=== PATIENT | female | born 1960 | race Caucasian/White ===

== ENCOUNTER 2018-02-09 08:32 | Inpatient (IN) | payer OTHER ==
[2018-02-09 08:45] VITALS: BMI 38.7
[2018-02-09] MEDS ORDERED: KETOROLAC TROMETHAMINE 30 MG/1 ML VIAL IVPUSH ONE (09:31)
[2018-02-09] MEDS ORDERED: SODIUM CHLORIDE 1,000 ML IV STA (09:31)
--- NOTE | 2018-02-09 09:31 | PDOC ---
History of Present Illness - General Chief Complaint: Pain, Acute Stated Complaint: WEAKNESS,LOWER BACK PAIN Time Seen by Provider: 02/09/18 09:09 History Source: Patient Exam Limitations: No Limitations - History of Present Illness Initial Comments: 02/09/18 10:16 Tao 57 year old female with a history of hypothyroidism, depression, breast cancer s/p lumpectomy, gastric bypass surgery, uterine prolapse, abdominal wall hernia s/p mesh Presenting to the ED with 2 days of progressive left flank pain, sharp and nonradiating, no alleviating or exacerbating factors , a/w dizziness/feeling faint and nausea. On , initially had lower back strain/pain thought to be 2/2 lifting heavy ham she had to cook. a/w urinary incontinence/frequency (x 3 months), but no hematuria. No f/c, cp, sob, vomiting, diarrhea or constipation. No h/o kidney stones. GENERAL/CONSTITUTIONAL: No fever or chills. +weakness and malaise CARDIOVASCULAR: No chest pain or palpitations, syncope or edema. RESPIRATORY: No SOB, cough GASTROINTESTINAL +abdominal pain and nausea. No vomiting. No diarrhea or constipation. No bloody stools. GENITOURINARY: No hematuria, +dysuria, frequency, urgency MUSCULOSKELETAL: No joint or muscle swelling or pain. +back pain SKIN: No rash or changes in skin color or lesions. NEUROLOGIC: +dizziness, near syncopal. No headache, loss of consciousness, or change in strength/sensation. No gait instability. HEMATOLOGIC/LYMPHATIC: No anemia, easy bruising/bleeding, or history of blood clots. ALLERGIC/IMMUNOLOGIC: No allergies All other systems reviewed and negative, or as documented in HPI. General: Well appearing, awake and alert, NAD. HEENT: NCAT, PERRL, EOMI, clear conjunctiva, anicteric, moist mucus membranes, clear oropharynx, no oral lesions.. Neck: neck supple, FROM Resp: CTAB, normal and even respirations, no respiratory distress CVS: RRR, no murmurs, 2+ peripheral pulses throughout, no peripheral edema Abdomen: soft, obese abdomen, nontender abdomen, no rebound or guarding.. +left CVAT Back: +left CVAT. normal inspection and ROM MSK: no edema, ROCHE x4, ROM intact. No clubbing or cyanosis. normal bulk and tone. Extremities: no calf tenderness Neuro: alert Skin: warm and well perfused, cap refill <2 sec, normal color Past History - Past Medical History Allergies/Adverse Reactions: Allergies Allergy/AdvReac Type Severity Reaction Status Date / Time No Known Allergies Allergy Verified 02/09/18 08:42 Home Medications: Ambulatory Orders Levothyroxine [Synthroid] 100 mcg PO DAILY 10/26/11 Citalopram Hydrobromide [Celexa -] 20 mg PO DAILY 11/28/12 Anemia: No Asthma: Yes Cancer: Yes (Right Breast) Cardiac Disorders: No CVA: No COPD: No CHF: No Dementia: No Diabetes: No GI Disorders: No Disorders: No HTN: No Hypercholesterolemia: No Liver Disease: No Seizures: No Thyroid Disease: Yes - Surgical History Abdominal Surgery: Yes (Gastric Bypass 1998) Appendectomy: No Cardiac Surgery: No Cholecystectomy: Yes Lung Surgery: No Neurologic Surgery: No Orthopedic Surgery: No - Suicide/Smoking/Psychosocial Hx Smoking Status: Yes Smoking History: Unknown if ever smoked Have you smoked in the past 12 months: Yes Number of Cigarettes Smoked Daily: 20 'Breaking Loose' booklet given: 10/26/11 Hx Alcohol Use: No Drug/Substance Use Hx: Yes Substance Use Type: Alcohol Hx Substance Use Treatment: No *Physical Exam - Vital Signs Last Vital Signs Temp Pulse Resp BP Pulse Ox 98.4 F 63 16 111/84 94 L 02/09/18 08:42 02/09/18 09:06 02/09/18 09:06 02/09/18 09:06 02/09/18 09:06 Moderate Sedation - Procedure Monitoring Vital Signs: Procedure Monitoring Vital Signs Temperature 98.4 F 02/09/18 08:42 Pulse Rate 63 02/09/18 09:06 Respiratory Rate 16 02/09/18 09:06 Blood Pressure 111/84 02/09/18 09:06 O2 Sat by Pulse Oximetry (%) 94 L 02/09/18 09:06 Procedures - Bedside Ultrasound Other: RENAL Remarks: 02/09/18 10:24 POCUS renal exam performed, indication includes abdominal/flank pain. views obtained: bilateral kidneys in short and long axis, bladder. findings: +severe left hydronephrosis. Impression: +left hydronephrosis. ED Treatment Course - LABORATORY CBC & Chemistry Diagram: 02/09/18 10:05 02/09/18 10:05 Medical Decision Making - Medical Decision Making 02/09/18 11:39 See HPI for details DDx abdominal pain: Renal colic, ureterolithiasis, biliary colic, metabolic/ electrolyte derangements. GERD, PUD, esophageal spasm, pancreatitis, hepatitis, constipation, colitis,UTI, pyelonephritis, ileus, SBO, medication side effect, hernia, appendicitis, diverticulitis, pelvic/abdominal mass causing obstruction of ureteral system. Vital signs reviewed, initially hypotensive, ?vagal episode 2/2 pain, on recheck normotensive, mentating and normalized VS no fever. Prior notes reviewed, including admissions, discharges and consultations. laboratory results and imaging reviewed, basic labs and lytes wnl, normal LFTs/ lipase. UA_with +leuk esterase and copious WBCs, f/u urine culture. Treat with IV ceftriaxone. ED course: toradol for analgesia, IVF hydration. Clinically improved. POCUS renal exam performed, indication includes abdominal/flank pain. views obtained: bilateral kidneys in short and long axis, bladder. findings: +severe left hydronephrosis. Impression: +left hydronephrosis. CT spiro_severe left hydro noted. perinephric stranding, but no stones or mass noted. Urology cs Dr Cooper electronic health records specialist Dispo: admit to medicine for continued management. Impression and plan d/w patient, agreeable. hospitalist team notified. 02/09/18 13:14 *DC/Admit/Observation/Transfer Diagnosis at time of Disposition: UTI (urinary tract infection), Hydronephrosis due to obstruction of ureter - Discharge Dispostion Condition at time of disposition: Fair Decision to Admit order: Yes Decision to Admit order Date/Time: 02/09/18 11:37 Decision to Admit Order Category Date Time Status Decision to Admit to Hospital Routine Admission 02/09/18 11:37 Ordered - Referrals - Patient Instructions - Post Discharge Activity
[2018-02-09] MEDS ORDERED: KETOROLAC TROMETHAMINE 15 MG/ML VIAL ONE (10:00)
[2018-02-09 10:27] LABS: BASO % 0.4 % (0-2.0); EOS % 0.1 % (0-4.5); HEMATOCRIT 34.7 % (32.4-45.2); HEMOGLOBIN 11.8 GM/dL (10.7-15.3); MCH 27.7 pg (25.7-33.7); MEAN CELL VOLUME 81.4 fl (80-96); MONO % 7.3 % (3.8-10.2); NEUT % 87.2 % (42.8-82.8); PLATELET COUNT 243 K/MM3 (134-434); RBC 4.26 M/mm3 (3.60-5.2); WHITE BLOOD COUNT 8.6 K/mm3 (4.0-10.0)
[2018-02-09 10:56] LABS: URINE APPEARANCE CLOUDY; URINE BILIRUBIN NEGATIVE (<2.0 mg/dL); URINE COLOR DKYELLOW; URINE GLUCOSE (UA) NEGATIVE (NEGATIVE); URINE KETONE 1+ (NEGATIVE); URINE LEUK ESTERASE 3+ (NEGATIVE); URINE NITRITE NEGATIVE (NEGATIVE); URINE PROTEIN NEGATIVE (NEGATIVE); URINE UROBILINOGEN NEGATIVE mg/dL (0.2-1.0)
[2018-02-09 11:02] LABS: ALBUMIN 3.7 g/dl (3.4-5.0); ALK PHOS 87 U/L (45-117); ANION GAP 8 MMOL/L (8-16); BILIRUBIN,TOTAL 2.3 mg/dL (0.2-1); BLOOD UREA NITROGEN 25 mg/dL (7-18); CALCIUM 8.5 mg/dL (8.5-10.1); CHLORIDE 100 mmol/L (98-107); CO2 25 mmol/L (21-32); CREATININE 0.9 mg/dL (0.55-1.3); GLUCOSE,RANDOM 127 mg/dL (74-106); LIPASE 95 U/L (73-393); POTASSIUM 4.1 mmol/L (3.5-5.1); SGOT/AST 17 U/L (15-37); SGPT/ALT 19 U/L (13-61); SODIUM 132 mmol/L (136-145); TOT PROT 6.6 g/dl (6.4-8.2)
[2018-02-09 11:18] LABS: EPI CELLS FEW /HPF (FEW); URINE BACTERIA RARE /hpf (NONE SEEN); URINE HYALINE CAST 7 /lpf; URINE MUCUS RARE
[2018-02-09] MEDS ORDERED: CEFTRIAXONE 1,000 MG in DEXTROSE 5%-WATER - 50 ML IVPB ONE (11:26)
--- NOTE | 2018-02-09 12:11 | EKG ---
Test Reason : Blood Pressure : / mmHG Vent. Rate : 063 BPM Atrial Rate : 063 BPM P-R Int : 164 ms QRS Dur : 086 ms QT Int : 406 ms P-R-T Axes : 057 -56 -16 degrees QTc Int : 415 ms NORMAL SINUS RHYTHM LEFT AXIS DEVIATION T WAVE ABNORMALITY, CONSIDER ANTERIOR ISCHEMIA ABNORMAL ECG WHEN COMPARED WITH ECG OF 28-NOV-2012 18:36, VENT. RATE HAS DECREASED BY 40 BPM NONSPECIFIC T WAVE ABNORMALITY NOW EVIDENT IN INFERIOR LEADS T WAVE INVERSION NOW EVIDENT IN ANTERIOR LEADS QT HAS SHORTENED Confirmed by LOLLY MCCORD MD ([id number]) on 02/09/2018 12:11:08 PM Referred By: Confirmed By:LOLLY CMCORD MD
[2018-02-09] MEDS ORDERED: KETOROLAC TROMETHAMINE 10 MG TABLET PO PRN (13:34)
[2018-02-09] MEDS ORDERED: ACETAMINOPHEN 1000 MG/100 ML VIAL (NON FORMULARY) IVPB ONE (13:43)
--- NOTE | 2018-02-09 13:45 | HP ---
CHIEF COMPLAINT: flank pain x 2 days PCP: Dr. Loja HISTORY OF PRESENT ILLNESS: 57 y/o F with PMH R breast CA (dx 2009; currently in remission. s/p radiation, tamoxifen finished 2011), depression, ?alcohol abuse, hypothyroidism, gastric bypass surgery (1998), uterine prolapse (2016), abdominal wall hernia repair w/ mesh (Jaspreet, 2016), freq UTIs, who presents to the ED c/o flank pain over the past two days. As per pt, yesterday she suddenly developed a sharp pain in her L flank. Pain was 10/10, constant and severe without radiation, however a/w nausea (without emesis) and "feeling as if she would pass out." She also felt subjective fever and chills. Pain was alleviated with two advils. Today, pt was having a meal with her friend when she developed the same recurrent, constant L flank pain leading her to come to the ED for further evaluation. During this time, pt denies urinary frequency, dysuria, hematuria, chest pain or pressure, or changes in bowel function. Of note, pt was diagnosed with uterine prolapse one year ago by her stair builder. She was told that she had increased pressure on her bladder and needed to have a hysterectomy or "other procedure" to have it fixed. Pt was currently in the process of scheduling this procedure. Recently, pt also developed severe constipation with hard stools a month ago after she tried a keto diet. Ever since, she has had developed worsening, frequent UTI's (most recently tx with Levaquin). 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 Smoking: +active smoker. 1/2 ppd "all her life" . has tried chantix in past without success Alcohol: denies; however chart w/ past hx of alcohol abuse Drugs: denies Family History: father- CHF, cancer- unable to specify d/t increased pain Allergies No Known Allergies Allergy (Verified 02/09/18 08:42) HOME MEDICATIONS: Home Medications Medication Instructions Recorded Levothyroxine [Synthroid] 112 mcg PO DAILY 10/26/11 Citalopram Hydrobromide [Celexa -] 30 mg PO DAILY 11/28/12 Zolpidem Tartrate [Ambien] 10 mg PO HS 02/09/18 Verified with patient at bedside. [facility] REVIEW OF SYSTEMS CONSTITUTIONAL: +fever, chills Absent: diaphoresis, generalized weakness, malaise, loss of appetite, weight change HEENT: Absent: rhinorrhea, nasal congestion, throat pain, throat swelling, difficulty swallowing, mouth swelling, ear pain, eye pain, visual changes CARDIOVASCULAR: Absent: chest pain, syncope, palpitations, irregular heart rate, lightheadedness , peripheral edema RESPIRATORY: Absent: cough, shortness of breath, dyspnea with exertion, orthopnea, wheezing, stridor, hemoptysis GASTROINTESTINAL: +nausea Absent: abdominal pain, abdominal distension, vomiting, diarrhea, constipation, melena, hematochezia GENITOURINARY: +flank pain Absent: dysuria, frequency, urgency, hesitancy, hematuria, genital pain MUSCULOSKELETAL: Absent: myalgia, arthralgia, joint swelling, back pain, neck pain SKIN: Absent: rash, itching, pallor HEMATOLOGIC/IMMUNOLOGIC: Absent: easy bleeding, easy bruising, lymphadenopathy, frequent infections ENDOCRINE: Absent: unexplained weight gain, unexplained weight loss, heat intolerance, cold intolerance NEUROLOGIC: Absent: headache, focal weakness or paresthesias, dizziness, unsteady gait, seizure, mental status changes, bladder or bowel incontinence PSYCHIATRIC: Absent: anxiety, depression, suicidal or homicidal ideation, hallucinations. PHYSICAL EXAMINATION Vital Signs - 24 hr 02/09/18 02/09/18 08:42 09:06 Temperature 98.4 F Pulse Rate 69 Pulse Rate [ 63 Apical] Respiratory 28 H 16 Rate Blood Pressure 85/43 L Blood Pressure 111/84 [Right] O2 Sat by Pulse 99 94 L Oximetry (%) GENERAL: pleasant. resting flat; in moderate distress HEAD: Normal with no signs of trauma. EYES: Pupils equal, round and reactive to light, extraocular movements intact, sclera anicteric, conjunctiva clear. EARS, NOSE, THROAT: Ears normal, nares patent, oropharynx clear without exudates. Dry mucous membranes NECK: Normal range of motion, supple LUNGS: +shallow breathing; in pain. CTA. without rhonchi, wheezes or crackles HEART: Regular rate and rhythm, normal S1 and S2 without murmur, rub or gallop. ABDOMEN: Soft, nontender, not distended, firm. + vertical surg scar. normoactive bowel sounds, no guarding. +L flank pain, L CVA tenderness LOWER EXTREMITIES: 2+ pt pulses, warm, well-perfused. No calf tenderness. No peripheral edema. NEUROLOGICAL: Cranial nerves II-XII intact. Normal speech. 5/5 motor strength RLE, RUE, LUE. unable to lift LLE d/t flank pain PSYCHIATRIC: Cooperative. Good eye contact. Laboratory Results 02/09/18 02/09/18 02/09/18 10:05 10:05 10:47 WBC 8.6 Hgb 11.8 Hct 34.7 Plt Count 243 Sodium 132 L Potassium 4.1 Chloride 100 Carbon Dioxide 25 BUN 25 H Creatinine 0.9 Total Bilirubin 2.3 H AST 17 ALT 19 Urine Ketones 1+ H Urine Blood 1+ H Ur Leukocyte Esterase 3+ H Urine WBC (Auto) [address]: L pelvocaliectasis with mild dilation of proximal ureter. No radiopaque stones. Findings new compared to past study. s/p bariatric surgery, cholecystectomy. mild dilation of extra hepatic bile ducts, usual postcholecystectomy. CBD 15mm as seen previously EKG: L axis deviation (present prior), anterior ischemia new from 2014 ekg. ASSESSMENT/PLAN: 57 y/o F with PMH R breast CA (dx 2009; currently in remission. s/p radiation, tamoxifen finished 2011), depression, ?alcohol abuse, hypothyroidism, gastric bypass surgery (1998), uterine prolapse (2016), abdominal wall hernia repair w/ mesh (Jaspreet, 2016), freq UTIs, who presents to the ED c/o L flank pain over the past two days. #Acute L flank pain likely 2/2 pyelonephritis -currently hemodynamically stable. L hydro likely worsened by recent episodes of severe constipation causing increased intraabdom pressure on bladder, may have caused urine to reflux. also likely worsened by may also have passed stone -case d/w uro; will insert persaud to allow for bladder decompression. will instruct on when it can be d/c -s/p rocephin. will cont rocephin 1g qd, will likely need 7 days total abx -f/u urine cx, blood cx. blood was sent s/p rocephin. possible pt bacteremic as had chills when sx began, ?rigors -pain control toradol 10q6h PO PRN; tolerating PO -tylenol 500 q6h PRN for fever -IV NS #?new anterior ischemia -f/u EKG tomorrow, may be chronic -may need stress test as outpt, reeval tomorrow -without chest pain -f/u trops #elevated t bili -as per rads, spiral CT report to be addended: dilation extra hepatic bile ducts usual post-jac -cont to follow LFTs (WNL now), currently asymptomatic #depression -c/w celexa 30mg qd #hypothyroidism -c/w synthroid 112 mcg qd #F/E/N IV NS 100 cc/hr continue to follow lytes regular diet #PPX DVT: hep 5k sq tid #Dispo monitoring on med-surg. continue iv abx, assessment by uro Visit type - Emergency Visit Emergency Visit: Yes ED Registration Date: 02/09/18 Care time: The patient presented to the Emergency Department on the above date and was hospitalized for further evaluation of their emergent condition. - New Patient This patient is new to me today: Yes Date on this admission: 02/09/18 - Critical Care Critical Care patient: No
--- NOTE | 2018-02-09 13:46 | PN ---
Teaching Attending Note Name of Resident: Yeimi Bah ATTENDING PHYSICIAN STATEMENT I saw and evaluated the patient. I reviewed the resident's note and discussed the case with the resident. I agree with the resident's findings and plan as documented. SUBJECTIVE: CC: L flank pain, and chills HPI: 57 y/o lady with h/o breast ca s/p lumpectomy, chemo and radiation, recurrent UTis, gastric bypass, uterine prolapse, depression and other medical problems who presented with L flank pain and chills. L flank pain started yesterday x 45 min , then resolved but recurred and has fiordaliza constant. she reports chills. reports dysuria, no hematuria. had dysuria 3 months ago, and was given a course of levaquin for UTI as out pt . since then , no urinary complaints. she is in ER now, still has L flank pain, has chills, feels very cold. received ceftriaxone in ER. CT was done and showed L hydro with stranding, but no obstruction OBJECTIVE: crying , in mild distress. awake, alert , cooperative MMM, no facial droop, EOMI, round equal pupils, reactive to light. no JVD. CV: RRR, no MRG Lungs: CTAB abd: soft, TTP in LUQ, LLQ, and suprapubic area. nL BS . L CVA tenderness Ext : no edema or erythema. Labs and UA reviewed. ASSESSMENT AND PLAN: Pleasant 57 y/o lady with h/o breast ca s/p lumpectomy, chemo and radiation, recurrent UTis, gastric bypass, uterine prolapse, depression and other medical problems who presented with L flank pain and chills. She was found to have acute L pyelonephritis. 1- Acute L pyelonephritis: with hydro, but no evidence of obstruction . ? passed a stone . - blood was not sent in ER. will send one stat - cont ceftriaxone - follow urine cx ( snet before abx ) - no obstruction on CT but will consult uro for hydronephrosis : uro notified by resident - persaud - IVF - toradol for pain - Tylenol for fever 2- Elevated bili : with NL LFTS. will fractionate the bili , suspect Gilbert's . Monitor . CT reviewed. dilation of extrahepatic bile ducts, s/p CCY. will d/w radiology. no RUQ tenderness 3- EKG changes: TWI in lateral leads. new from 2015. L axis ( old ) . no CP. changes are probably not new. - check trop x 2 . - might need out pt work up 4- h/o depression : cont SSRI 5- h/o hypothyroidism: cont synthroid 6- DVT PX : heparin sq case was d/w patient
[2018-02-09] MEDS: SODIUM CHLORIDE 1,000 ML IV SCH (13:49)
[2018-02-09] MEDS ORDERED: ACETAMINOPHEN INJECTION 100 ML IVPB ONE (13:51)
[2018-02-09] MEDS: HEPARIN NA (PORCINE) 5,000 UNITS/ML 1ML VIAL SQ SCH ×2 (14:56→17:01)
[2018-02-09] MEDS: LEVOTHYROXINE NA 112 MCG TABLET (FP) PO SCH (14:57)
[2018-02-09] MEDS: ACETAMINOPHEN 500 MG TABLET (FP) PO PRN (20:19)
[2018-02-09] MEDS ORDERED: PT OWN MED DRAWER 7, Y5N ONE (21:32)
[2018-02-09] MEDS: ZOLPIDEM TARTRATE 5 MG TABLET PO PRN (21:35)
[2018-02-09] MEDS: CITALOPRAM HYDROBROMIDE 10 MG TABLET (FP) PO SCH (22:24)
[2018-02-10] MEDS: HEPARIN NA (PORCINE) 5,000 UNITS/ML 1ML VIAL SQ SCH ×3 (01:58→17:08)
[2018-02-10] MEDS: LEVOTHYROXINE NA 112 MCG TABLET (FP) PO SCH (06:15)
[2018-02-10 08:26] LABS: BASO % 0.6 % (0-2.0); EOS % 0.5 % (0-4.5); HEMATOCRIT 32.1 % (32.4-45.2); HEMOGLOBIN 10.4 GM/dL (10.7-15.3); LYMPH % 8.1 % (8-40); MCH 26.8 pg (25.7-33.7); MCHC 32.3 g/dl (32.0-36.0); MEAN PLT VOLUME 8.4 fl (7.5-11.1); MONO % 7.9 % (3.8-10.2); NEUT % 82.9 % (42.8-82.8); PLATELET COUNT 180 K/MM3 (134-434); RBC 3.87 M/mm3 (3.60-5.2); RDW 14.3 % (11.6-15.6); WHITE BLOOD COUNT 6.9 K/mm3 (4.0-10.0)
--- NOTE | 2018-02-10 08:26 | CON.GU ---
Consult Consult Specialty:: Referred by:: maty Reason for Consultation:: hydronephrosis - History of Present Illness Chief Complaint: hydronephrosis History of Present Illness: 57 year old female with grade 4 uterine prolapse. She is admitted with presumed pyelonephritis. She was found to have severe left hydronephrosis down to the bladder without stone. She reports that her prolapse occurred about [address] scan in 2014 before the prolapse showed no obstruction - History Source History Provided By: Patient Limitations to Obtaining History: No Limitations - Past Medical History Reproductive: Yes: Other (prolapse) ...: No - Alcohol/Substance Use Hx Alcohol Use: No - Smoking History Smoking history: Current some day smoker Have you smoked in the past 12 months: Yes Aproximately how many cigarettes per day: 7 Home Medications - Allergies Allergies/Adverse Reactions: Allergies Allergy/AdvReac Type Severity Reaction Status Date / Time No Known Allergies Allergy Verified 02/09/18 08:42 - Home Medications Home Medications: Ambulatory Orders Levothyroxine [Synthroid] 112 mcg PO DAILY 10/26/11 Citalopram Hydrobromide [Celexa -] 30 mg PO DAILY 11/28/12 Zolpidem Tartrate [Ambien] 10 mg PO HS PRN 02/09/18 Review of Systems - Review of Systems Genitourinary: reports: Frequency, Incontinence Physical Exam- Vital Signs: Vital Signs Temperature 98.1 F 02/10/18 05:00 Pulse Rate 78 02/10/18 05:00 Respiratory Rate 20 02/10/18 05:00 Blood Pressure 109/60 02/10/18 05:00 O2 Sat by Pulse Oximetry (%) 98 02/09/18 21:00 Constitutional: Yes: Well Nourished, No Distress, Calm Gastrointestinal: Yes: WNL, Normal Bowel Sounds Renal/: No: Bladder Distention, CVA Tenderness - Left, CVA Tenderness - Right , Persaud Present Pelvis: Yes: Other (grade 4 uterine prolapse) Imaging - Results Cat Scan: Report Reviewed Problem List - Problems (1) Uterine prolapse Code(s): N81.4 - UTEROVAGINAL PROLAPSE, UNSPECIFIED (2) Hydronephrosis Assessment/Plan: prolapse is contributing to hydroureteronephrosis.. I placed a persaud catheter. Code(s): N13.30 - UNSPECIFIED HYDRONEPHROSIS
[2018-02-10 08:59] LABS: ALBUMIN 2.8 g/dl (3.4-5.0); ALK PHOS 64 U/L (45-117); ANION GAP 8 MMOL/L (8-16); BILIRUBIN,TOTAL 1.4 mg/dL (0.2-1); BLOOD UREA NITROGEN 20 mg/dL (7-18); CALCIUM 7.8 mg/dL (8.5-10.1); CHLORIDE 107 mmol/L (98-107); CO2 24 mmol/L (21-32); CREATININE 0.9 mg/dL (0.55-1.3); GLUCOSE,RANDOM 91 mg/dL (74-106); MAGNESIUM 1.8 mg/dL (1.8-2.4); PHOSPHOROUS 2.4 mg/dL (2.5-4.9); POTASSIUM 4.1 mmol/L (3.5-5.1); SGOT/AST 16 U/L (15-37); SGPT/ALT 13 U/L (13-61); SODIUM 138 mmol/L (136-145); TOT PROT 5.5 g/dl (6.4-8.2)
[2018-02-10 09:00] LABS: INR 1.33 (0.83-1.09); PROTHROMBIN TIME (PATIENT) 15.7 SEC (9.7-13.0)
[2018-02-10] MEDS: CITALOPRAM HYDROBROMIDE 10 MG TABLET (FP) PO SCH (09:36)
[2018-02-10] MEDS: ACETAMINOPHEN 500 MG TABLET (FP) PO PRN ×2 (09:36→17:07)
[2018-02-10] MEDS ORDERED: DEXTROSE 5%-WATER - 50 ML IVPB ONE (11:12)
[2018-02-10] MEDS ORDERED: cefTRIAXone SODIUM 1 GM VIAL ONE (11:12)
[2018-02-10] MEDS ORDERED: CEFTRIAXONE 1 G/50 ML PREMIX 50 ML IVPB SCH (12:00)
[2018-02-10] MEDS ORDERED: CEFTRIAXONE 1 GM in DEXTROSE 5%-WATER - 50 ML IVPB SCH (12:00)
[2018-02-10] MEDS ORDERED: NAPH,MB-DB/K PH,MBDB POWDER PACKET PO ONE (12:04)
[2018-02-10] MEDS ORDERED: MAGNESIUM OXIDE 400 MG TABLET (FP) PO ONE (12:05)
[2018-02-10] MEDS: SODIUM CHLORIDE 1,000 ML IV SCH ×2 (13:45→23:44)
--- NOTE | 2018-02-10 17:48 | PN ---
Teaching Attending Note Name of Resident: Cait Esposito ATTENDING PHYSICIAN STATEMENT I saw and evaluated the patient. I reviewed the resident's note and discussed the case with the resident. I agree with the resident's findings and plan as documented. SUBJECTIVE: seen in am. felt better than before. denied any pain or fever over night. OBJECTIVE: NAD. happy and smiling MMM CV: RRR, no MRG Lungs: CTAB Abd: soft, NT, ND , NL BS Ext : no edema or erythema. ASSESSMENT AND PLAN: Pleasant 57 y/o lady with h/o breast ca s/p lumpectomy, chemo and radiation, recurrent UTis, gastric bypass, uterine prolapse, depression and other medical problems who presented with L flank pain and chills. She was found to have acute L pyelonephritis. 1- Acute L pyelonephritis: with hydro, but no evidence of obstruction. ? passed a stone vs from uterine prolapse . - cont ceftriaxone. fever is OK within 48 hr of starting abx - urine cx noted for lactose fermenting - follow blood cx - cont persaud - repeat US tomorrow 2- EKG changes: TWI in lateral leads. new from 2015. L axis ( old ) . no CP. changes are probably not new. - trop neg - might need out pt work up 3- h/o depression : cont SSRI 4- h/o hypothyroidism: cont synthroid 5- DVT PX : heparin sq
--- NOTE | 2018-02-10 18:02 | PN ---
Physical Exam: SUBJECTIVE: Patient seen and examined at bedside this morning. No acute events overnight. Patient reported her flank pain has resolved, and she has not asked for any pain medications. She reports of headache last night, which was relieved after taking Tylenol. Otherwise, patient denies fever, chills, nausea, vomiting, chest pain, SOB, palpitation, abdominal pain, diarrhea. Leary output 1200ml overnight. OBJECTIVE: Vital Signs Period Temp Pulse Resp BP Sys/Mcallister Pulse Ox Last 24 Hr 98.1 F-101.3 F 69-86 18-20 102-118/56-63 98 GENERAL: The patient is awake, alert, and fully oriented, in no acute distress. HEAD: Normal with no signs of trauma. EYES: PERRLA, EOMI, sclera anicteric, conjunctiva clear. ENT: Ears normal, nares patent, oropharynx clear without exudates, moist mucous membranes. NECK: Trachea midline, full range of motion, supple. LUNGS: Breath sounds equal, clear to auscultation bilaterally. HEART: Regular rate and rhythm, S1, S2 without murmur, rub or gallop. ABDOMEN: Soft, nontender, nondistended, normoactive bowel sounds. EXTREMITIES: 2+ pulses, warm, well-perfused, no edema. NEUROLOGICAL: Cranial nerves II through XII grossly intact. Normal speech, gait not observed. PSYCH: Normal mood, normal affect. SKIN: Warm, dry, normal turgor, no rashes or lesions noted Laboratory Results - last 24 hr 02/09/18 02/10/18 02/10/18 21:35 07:30 07:30 WBC 6.9 RBC 3.87 Hgb 10.4 L Hct 32.1 L MCV 83.0 MCH 26.8 MCHC 32.3 RDW 14.3 Plt Count 180 D MPV 8.4 Absolute Neuts (auto) 5.7 Neutrophils % 82.9 H Lymphocytes % 8.1 D Monocytes % 7.9 Eosinophils % 0.5 D Basophils % 0.6 Nucleated RBC % 0 PT with INR 15.70 H INR 1.33 H PTT (Actin FS) 32.0 Sodium Potassium Chloride Carbon Dioxide Anion Gap BUN Creatinine Creat Clearance w eGFR Random Glucose Calcium Phosphorus Magnesium Total Bilirubin Direct Bilirubin AST ALT Alkaline Phosphatase Creatine Kinase 77 Troponin I < 0.02 Total Protein Albumin 02/10/18 02/10/18 07:30 07:30 WBC RBC Hgb Hct MCV MCH MCHC RDW Plt Count MPV Absolute Neuts (auto) Neutrophils % Lymphocytes % Monocytes % Eosinophils % Basophils % Nucleated RBC % PT with INR INR PTT (Actin FS) Sodium 138 Potassium 4.1 Chloride 107 Carbon Dioxide 24 Anion Gap 8 BUN 20 H Creatinine 0.9 Creat Clearance w eGFR > 60 Random Glucose 91 Calcium 7.8 L Phosphorus 2.4 L Magnesium 1.8 Total Bilirubin 1.4 H Direct Bilirubin 0.4 H AST 16 ALT 13 Alkaline Phosphatase 64 Creatine Kinase Troponin I Total Protein 5.5 L Albumin 2.8 L Active Medications Generic Name Dose Route Start Last Admin Trade Name Freq PRN Reason Stop Dose Admin Acetaminophen 500 mg 02/09/18 14:15 02/10/18 17:07 Tylenol - PO 500 mg Q6H PRN Administration FEVER Citalopram Hydrobromide 30 mg 02/09/18 22:00 02/10/18 09:36 Celexa - PO 30 mg DAILY SOFIYA Administration Heparin Sodium (Porcine) 5,000 unit 02/09/18 13:45 02/10/18 17:08 Heparin - SQ 5,000 unit Q8H-IV SOFIYA Administration Sodium Chloride 1,000 mls @ 100 mls/hr 02/09/18 13:30 02/10/18 13:45 Normal Saline - IV 100 mls/hr ASDIR SOFIYA Administration Ceftriaxone Sodium 1 gm/ 50 mls @ 100 mls/hr 02/10/18 12:00 02/10/18 11:46 Dextrose IVPB 100 mls/hr DAILY@1200 SOFIYA Administration Ketorolac Tromethamine 10 mg 02/09/18 13:34 Toradol PO 02/14/18 13:33 Q6HPO PRN PAIN LEVEL 7 - 10 Levothyroxine Sodium 112 mcg 02/09/18 13:45 02/10/18 06:15 Synthroid - PO 112 mcg DAILY@0700 SOFIYA Administration Zolpidem Tartrate 10 mg 02/09/18 22:00 02/09/18 21:35 Ambien - PO 10 mg HS PRN Administration INSOMNIA ASSESSMENT/PLAN: Patient is a 57 year old female with past medical history of R breast CA (s/p radiation and tamoxifen, currently in remission), depression, ?alcohol abuse, hypothyroidism, gastric bypass surgery, uterine prolapse, abdominal wall hernia repair with mesh, frequent UTIs, presented with left flank pain for 2 days. #Left flank pain likely 2/2 UTI -UA: 3+ LE, 355 WBC -Spiral CT - Left pelvocaliectasis with mild dilation of proximal ureter. No radiopaque stones. Findings new compared to past study. -Urology (Dr. Nichols) consulted. Recommendations appreciated. -Uterine prolapse probably contributing to hydroureteronephrosis. -Leary inserted. -Ceftriaxone 1gm daily day 2 -Urine culture growing lactose fermenting gram negative bacilli -Toradol 10mg q6h PRN for pain. -Tylenol 500mg 16h PRN for fever. -IV NS @ 100ml/hr #Anterior ischemia: ?acute vs chronic -EKG: LAD, T wave inversions in anterior leads, new from 2014 -EKG repeated this morning -Trop negative twice -May need to follow-up as outpatient. Will refer once discharged. #Elevated T. bilirubin: improving -T. bili 2.3 --> 1.4 -D. bili 0.4 -Spiral CT: S/p bariatric surgery, cholecystectomy. Mild dilation of extra hepatic bile ducts, usual postcholecystectomy. CBD 15mm as seen previously. 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 - New Patient This patient is new to me today: Yes Date on this admission: 02/10/18 - Critical Care Critical Care patient: No
--- NOTE | 2018-02-10 19:09 | EKG ---
Test Reason : Blood Pressure : / mmHG Vent. Rate : 081 BPM Atrial Rate : 081 BPM P-R Int : 164 ms QRS Dur : 094 ms QT Int : 340 ms P-R-T Axes : 061 -45 -21 degrees QTc Int : 394 ms NORMAL SINUS RHYTHM LEFT AXIS DEVIATION LOW VOLTAGE QRS NONSPECIFIC T WAVE ABNORMALITY ABNORMAL ECG WHEN COMPARED WITH ECG OF 09-FEB-2018 08:50, NONSPECIFIC T WAVE ABNORMALITY HAS REPLACED INVERTED T WAVES IN ANTERIOR LEADS Confirmed by JAYNA VEGA MD ([id number]) on 02/10/2018 7:09:10 PM Referred By: MELISSA QUIÑONEZ Confirmed By:JAYNA VEGA MD
[2018-02-10] MEDS ORDERED: ALBUTEROL SO4 0.083% IH SOL 2.5 MG/3 ML VIAL.NEB. NEB ONE (19:53)
[2018-02-10] MEDS: ZOLPIDEM TARTRATE 5 MG TABLET PO PRN (21:42)
[2018-02-11] MEDS: HEPARIN NA (PORCINE) 5,000 UNITS/ML 1ML VIAL SQ SCH ×3 (02:14→18:26)
[2018-02-11] MEDS: LEVOTHYROXINE NA 112 MCG TABLET (FP) PO SCH (06:46)
[2018-02-11 07:22] LABS: BASO % 0.8 % (0-2.0); EOS % 1.5 % (0-4.5); HEMATOCRIT 30.6 % (32.4-45.2); HEMOGLOBIN 9.7 GM/dL (10.7-15.3); LYMPH % 18.1 % (8-40); MCH 26.3 pg (25.7-33.7); MCHC 31.9 g/dl (32.0-36.0); MEAN CELL VOLUME 82.6 fl (80-96); MEAN PLT VOLUME 8.5 fl (7.5-11.1); MONO % 10.3 % (3.8-10.2); NEUT % 69.3 % (42.8-82.8); PLATELET COUNT 184 K/MM3 (134-434); RDW 14.5 % (11.6-15.6); WHITE BLOOD COUNT 4.3 K/mm3 (4.0-10.0)
[2018-02-11 07:45] LABS: ANION GAP 7 MMOL/L (8-16); BLOOD UREA NITROGEN 12 mg/dL (7-18); CALCIUM 7.6 mg/dL (8.5-10.1); CHLORIDE 112 mmol/L (98-107); CO2 24 mmol/L (21-32); CREATININE 0.6 mg/dL (0.55-1.3); GLUCOSE,RANDOM 89 mg/dL (74-106); MAGNESIUM 1.9 mg/dL (1.8-2.4); PHOSPHOROUS 1.9 mg/dL (2.5-4.9); POTASSIUM 3.7 mmol/L (3.5-5.1); SODIUM 143 mmol/L (136-145)
[2018-02-11] MEDS ORDERED: PT OWN MED DRAWER 7, Y5N ONE (11:07)
[2018-02-11] MEDS: CITALOPRAM HYDROBROMIDE 10 MG TABLET (FP) PO SCH (11:09)
--- NOTE | 2018-02-11 11:21 | PN ---
Physical Exam: SUBJECTIVE: Patient seen and examined at bedside. No acute events overnight. OBJECTIVE: Vital Signs Temperature 98.8 F 02/11/18 06:00 Pulse Rate 66 02/11/18 06:00 Respiratory Rate 20 02/11/18 06:00 Blood Pressure 131/68 02/11/18 06:00 O2 Sat by Pulse Oximetry (%) 97 02/10/18 21:00 GENERAL: AAOx3. Comfortable. HEENT: AT/NC. EOMI. MARTA. Moist mucus membranes. NECK: Trachea midline, full range of motion, supple. LUNGS: +B/L wheezes. Good respiratory effort. HEART: Regular rate and rhythm, S1, S2 without murmur, rub or gallop. ABDOMEN: Soft, nontender, nondistended, normoactive bowel sounds. EXTREMITIES: 2+ pulses, warm, well-perfused, no edema. NEUROLOGICAL: Cranial nerves II through XII grossly intact. Normal speech, gait not observed. PSYCH: Normal mood, normal affect. SKIN: Warm, dry, normal turgor, no rashes or lesions noted CBCD WBC 4.3 K/mm3 (4.0-10.0) 02/11/18 07:00 RBC 3.70 M/mm3 (3.60-5.2) 02/11/18 07:00 Hgb 9.7 GM/dL (10.7-15.3) L 02/11/18 07:00 Hct 30.6 % (32.4-45.2) L 02/11/18 07:00 MCV 82.6 fl (80-96) 02/11/18 07:00 MCHC 31.9 g/dl (32.0-36.0) L 02/11/18 07:00 RDW 14.5 % (11.6-15.6) 02/11/18 07:00 Plt Count 184 K/MM3 (134-434) 02/11/18 07:00 MPV 8.5 fl (7.5-11.1) 02/11/18 07:00 CMP Sodium 143 mmol/L (136-145) 02/11/18 07:00 Potassium 3.7 mmol/L (3.5-5.1) 02/11/18 07:00 Chloride 112 mmol/L (98-107) H 02/11/18 07:00 Carbon Dioxide 24 mmol/L (21-32) 02/11/18 07:00 Anion Gap 7 MMOL/L (8-16) L 02/11/18 07:00 BUN 12 mg/dL (7-18) 02/11/18 07:00 Creatinine 0.6 mg/dL (0.55-1.3) 02/11/18 07:00 Creat Clearance w eGFR > 60 (>60) 02/11/18 07:00 Calcium 7.6 mg/dL (8.5-10.1) L 02/11/18 07:00 Total Bilirubin 1.4 mg/dL (0.2-1) H 02/10/18 07:30 AST 16 U/L (15-37) 02/10/18 07:30 ALT 13 U/L (13-61) 02/10/18 07:30 Alkaline Phosphatase 64 U/L (45-117) 02/10/18 07:30 Total Protein 5.5 g/dl (6.4-8.2) L 02/10/18 07:30 Albumin 2.8 g/dl (3.4-5.0) L 02/10/18 07:30 Active Medications Acetaminophen (Tylenol -) 500 mg PO Q6H PRN PRN Reason: FEVER Last Admin: 02/10/18 17:07 Dose: 500 mg Citalopram Hydrobromide (Celexa -) 30 mg PO DAILY [facility] Last Admin: 02/11/18 11:09 Dose: 30 mg Heparin Sodium (Porcine) (Heparin -) 5,000 unit SQ Q8H-IV [facility] Last Admin: 02/11/18 11:08 Dose: 5,000 unit Sodium Chloride (Normal Saline -) 1,000 mls @ 100 mls/hr IV ASDIR [facility] Last Admin: 02/10/18 23:44 Dose: 100 mls/hr Ketorolac Tromethamine (Toradol) 10 mg PO Q6HPO PRN PRN Reason: PAIN LEVEL 7 - 10 Stop: 02/14/18 13:33 Levofloxacin (Levaquin -) 500 mg PO DAILY@0600 [facility] Last Admin: 02/11/18 11:08 Dose: 500 mg Levothyroxine Sodium (Synthroid -) 112 mcg PO DAILY@0700 [facility] Last Admin: 02/11/18 06:46 Dose: 112 mcg Zolpidem Tartrate (Ambien -) 10 mg PO HS PRN PRN Reason: INSOMNIA Last Admin: 02/10/18 21:42 Dose: 10 mg IMAGING: * Renal U/S (02/11): Marked L sided hydronephrosis c/w a longstanding high UPJ obstruction. L kidney 14.6 x 8 x 6.8 cm. R kidney 11.2 x 5.3 x 5.1. * Spiral CT (02/09): L pelvocaliectasis with mild dilatation of the proximal ureter. L hydronephrosis present. Renal pelvis measures 8.2 cm. No radioopaque stones noted. S/P bariatric sx and cholecystectomy. ASSESSMENT/PLAN: Patient is a 57 year old female with past medical history of R breast CA (s/p radiation and tamoxifen, currently in remission), depression, ?alcohol abuse, hypothyroidism, gastric bypass surgery, uterine prolapse, abdominal wall hernia repair with mesh, frequent UTIs, presented with left flank pain for 2 days. #Left flank pain likely 2/2 hydruteronephrosis; due to uterine prolapse. UA: 3+ LE, 355 WBC -Pt much improved today, minimal pain, afebrile, non-toxic. -Spiral CT noted above. -Uro contacted, OK to ty persaud for now; will need close follow up with uro outpatient. -UCx was +e.coli; DC Ceftriaxone and start Levaquin 500 mg PO x7 days, first dose now. -Toradol 10mg q6h PRN for pain. -Tylenol 500mg 16h PRN for fever. -IV NS @ 100ml/hr -BCx neg x24h; F/u final results #Anterior ischemia: ?acute vs chronic -EKG: LAD, T wave inversions in anterior leads, new from 2014; Trops neg x2 -May need to follow-up as outpatient. Will refer once discharged. #Depression; chronic. 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 - New Patient This patient is new to me today: Yes Date on this admission: 02/11/18 - Critical Care Critical Care patient: No
[2018-02-11] MEDS: ACETAMINOPHEN 500 MG TABLET (FP) PO PRN (11:26)
--- NOTE | 2018-02-11 12:48 | PN ---
Teaching Attending Note Name of Resident: Loraine Downey ATTENDING PHYSICIAN STATEMENT I saw and evaluated the patient. I reviewed the resident's note and discussed the case with the resident. I agree with the resident's findings and plan as documented. SUBJECTIVE: no pain, no fever or chills. OBJECTIVE: NAD. po MMM CV: RRR, no MRG Lungs: CTAB Abd: soft, NT, ND , NL BS Ext : no edema or erythema. ASSESSMENT AND PLAN: Po 57 y/o lady with h/o breast ca s/p lumpectomy, chemo and radiation, recurrent UTis, gastric bypass, uterine prolapse, depression and other medical problems who presented with L flank pain and chills. She was found to have acute L pyelonephritis. 1- Acute L pyelonephritis: with L hydro. case was d/w urolologist by resident who suspects prolaps and reflux is cause of hydro. - recs form uro to remove persaud today wiht close follo wup - d/w patient need to f/u with uro and TONG SETTER for treatment of prolapse -urine cx noted. change abx to levaquin . total of 10 days of treatment - blood cx stil neg - repeat US with persistent hydro 2- EKG changes: TWI in lateral leads. new from 2015. L axis ( old ) . no CP. changes are probably not new. follow up with card as out pt 3- h/o depression : cont SSRI 4- h/o hypothyroidism: cont synthroid 5dispo : might dc home today if voids and if no more fever ASSESSMENT AND PLAN:
[2018-02-11] MEDS: SODIUM CHLORIDE 1,000 ML IV SCH (18:26)
[2018-02-11] MEDS: ZOLPIDEM TARTRATE 5 MG TABLET PO PRN (21:55)
[2018-02-12] MEDS: HEPARIN NA (PORCINE) 5,000 UNITS/ML 1ML VIAL SQ SCH ×2 (05:49→10:03)
[2018-02-12] MEDS: LEVOTHYROXINE NA 112 MCG TABLET (FP) PO SCH (06:16)
[2018-02-12 07:36] LABS: HEMATOCRIT 29.9 % (32.4-45.2); HEMOGLOBIN 9.7 GM/dL (10.7-15.3); MCH 26.6 pg (25.7-33.7); MCHC 32.3 g/dl (32.0-36.0); MEAN CELL VOLUME 82.2 fl (80-96); MEAN PLT VOLUME 8.4 fl (7.5-11.1); PLATELET COUNT 185 K/MM3 (134-434); RBC 3.64 M/mm3 (3.60-5.2); RDW 14.3 % (11.6-15.6); WHITE BLOOD COUNT 2.9 K/mm3 (4.0-10.0)
[2018-02-12 08:30] LABS: ANION GAP 8 MMOL/L (8-16); BLOOD UREA NITROGEN 13 mg/dL (7-18); CALCIUM 8.3 mg/dL (8.5-10.1); CHLORIDE 106 mmol/L (98-107); CO2 23 mmol/L (21-32); CREATININE 0.6 mg/dL (0.55-1.3); GLUCOSE,RANDOM 89 mg/dL (74-106); POTASSIUM 3.8 mmol/L (3.5-5.1); SODIUM 138 mmol/L (136-145)
[2018-02-12] MEDS ORDERED: PT OWN MED DRAWER 7, Y5N ONE (09:10)
[2018-02-12 10:18] VITALS: BP 134/75; PULSE 61; TEMP 97.8
[2018-02-12] MEDS: CITALOPRAM HYDROBROMIDE 10 MG TABLET (FP) PO SCH (10:20)
--- NOTE | 2018-02-12 15:13 | PN ---
Progress Note (short form) - Note Progress Note: Subjective: No fever or chills . no pain . Objective: Vital Signs: Last Vital Signs Temp Pulse Resp BP Pulse Ox 97.8 F 61 20 134/75 97 02/12/18 10:00 02/12/18 10:00 02/12/18 10:00 02/12/18 10:00 02/12/18 09:00 Laboratory Results - last 24 hr 02/12/18 02/12/18 07:30 07:30 WBC 2.9 L RBC 3.64 Hgb 9.7 L Hct 29.9 L MCV 82.2 MCH 26.6 MCHC 32.3 RDW 14.3 Plt Count 185 MPV 8.4 Sodium 138 Potassium 3.8 Chloride 106 Carbon Dioxide 23 Anion Gap 8 BUN 13 Creatinine 0.6 Creat Clearance w eGFR > 60 Random Glucose 89 Calcium 8.3 L Physical Exam: NAD. pleasant CV: RRR, no MRG Lungs: CTAB Abd: soft, NT, ND , NL BS Ext : no edema or erythema. ASSESSMENT AND PLAN: Pleasant 57 y/o lady with h/o breast ca s/p lumpectomy, chemo and radiation, recurrent UTis, gastric bypass, uterine prolapse, depression and other medical problems who presented with L flank pain and chills. She was found to have acute L pyelonephritis. 1- Acute L pyelonephritis: with L hydro. - cont levaquin to finish a total course of 10 days - f/u with uro and shop laborer for treatemtn of prolapse nad repeat imaging of L kidney - patient understands the importance of follow up to avoid CKD - blood cx NGTD 2- EKG changes: TWI in lateral leads. new from 2015. L axis ( old ) . no CP. changes are probably not new. follow up with card as out pt 3- h/o depression : cont SSRI 4- h/o hypothyroidism: cont synthroid dispo : dc home today Microbiology 02/09/18 16:00 Blood Culture - Preliminary Blood - Peripheral Venous NO GROWTH OBTAINED AFTER 48 HOURS, INCUBATION TO CONTINUE FOR 3 DAYS. 02/09/18 15:00 Blood Culture - Preliminary Blood - Peripheral Venous NO GROWTH OBTAINED AFTER 48 HOURS, INCUBATION TO CONTINUE FOR 3 DAYS. Visit type - Emergency Visit Emergency Visit: Yes ED Registration Date: 02/09/18 Care time: The patient presented to the Emergency Department on the above date and was hospitalized for further evaluation of their emergent condition. - New Patient This patient is new to me today: No - Critical Care Critical Care patient: No
--- NOTE | 2018-02-13 13:28 | DS ---
Physical Exam: SUBJECTIVE: Patient seen and examined OBJECTIVE: PHYSICAL EXAM GENERAL: The patient is awake, alert, and fully oriented, in no acute distress. HEAD: Normal with no signs of trauma. EYES: PERRL, extraocular movements intact, sclera anicteric, conjunctiva clear. ENT: Ears normal, nares patent, oropharynx clear without exudates, moist mucous membranes. NECK: Trachea midline, full range of motion, supple. LUNGS: Breath sounds equal, clear to auscultation bilaterally, no wheezes, no crackles, no accessory muscle use. HEART: Regular rate and rhythm, S1, S2 without murmur, rub or gallop. ABDOMEN: Soft, nontender, nondistended, normoactive bowel sounds, no guarding, no rebound, no hepatosplenomegaly, no masses. EXTREMITIES: 2+ pulses, warm, well-perfused, no edema. NEUROLOGICAL: Cranial nerves II through XII grossly intact. Normal speech, gait not observed. PSYCH: Normal mood, normal affect. SKIN: Warm, dry, normal turgor, no rashes or lesions noted. LABS HOSPITAL COURSE: Date of Admission:02/09/18 Date of Discharge: 02/13/18 Discharge Summary Reason For Visit: UTI Condition: Improved - Instructions Diet, Activity, Other Instructions: You were admitted because you had left-sided back pain. Labs and CAT scan was done which showed you had a kidney infection. This was likely because the uterine prolapse causes urine to go back up to the kidneys, causing an infection. You were treated with antibiotics. Please continue taking the following medications as prescribed: take levaquin daily for 7 more days Follow-ups: -Follow-up with your PUMPER [facility] doctor (Dr. Moreira) for further management of the uterine prolapse. it is very important to relieve pressure for your kidney -Follow-up with your primary care doctor within 1 week. - make sure to follow with urologist within a week. it is very important. you might need more imaging for your kidney Call 911 or go to the ED if with any worsening fever, chills, headache, dizziness, nausea, vomiting, chest pain, shortness of breath, belly pain, or any new concerns noted. follow up with cardiology for EKG changes . referred to Dr. Castorena Referrals: Heidi Loja MD [Primary Care Provider] - 1 Week Gerardo Nichols MD [Staff Physician] - 1 Week Errol Castorena MD [Staff Physician] - Disposition: HOME - Home Medications Comprehensive Discharge Medication List: Ambulatory Orders Levothyroxine [Synthroid -] 112 mcg PO DAILY 10/26/11 Citalopram Hydrobromide [Celexa -] 30 mg PO DAILY 11/28/12 Zolpidem Tartrate [Ambien] 10 mg PO HS PRN 02/09/18 levoFLOXacin [Levaquin -] 500 mg PO DAILY@0600 #7 tablet 02/12/18
== END 2018-02-12 11:17 | disposition home or self-care (01) | DRG 690 ==
LOC: JER 08:32 → JERBED 11:37 → J8W 14:03
PROVIDERS: ADMIT Internal Medicine; ATTEND Internal Medicine
DX: N10 Acute pyelonephritis (principal); F32.9 Major depressive disorder, single episode, unspecified; E03.9 Hypothyroidism, unspecified; Z85.3 Personal history of malignant neoplasm of breast; N13.30 Unspecified hydronephrosis; F17.210 Nicotine dependence, cigarettes, uncomplicated; N81.4 Uterovaginal prolapse, unspecified
CPT/HCPCS: 36415; 74176; 76775-TC; 80048; 80053; 81003; 81015; 82248; 82550; 83690; 83735; 84100; 84484; 84703; 85025; 85027; 85610; 85730; 87040; 87086; 87186; 93005; 93010; 94640; 99282-25; J0131; J1644; J7030

== ENCOUNTER 2018-03-24 12:20 | Day surgery (SDC) | payer OTHER ==
[2018-03-23 10:21] VITALS: BMI 35.7
[2018-03-24] MEDS ORDERED: ONDANSETRON 4 MG/2 ML VIAL IVPUSH PRN (14:22)
--- NOTE | 2018-03-24 14:25 | HP ---
History & Physical Update - History History: No Change - Physical Physical: No Change - Assessment Assessment: No Change - Plan Plan: No Change (03/01/18)
[2018-03-24] MEDS ORDERED: ACETAMINOPHEN 1000 MG/100 ML VIAL (NON FORMULARY) IVPB ONE (14:26)
[2018-03-24] MEDS ORDERED: IBUPROFEN 800 MG/8 ML IJ IVPB SCH (14:30)
[2018-03-24] MEDS ORDERED: LACTATED RINGERS SOLUTION 1,000 ML IV SCH (14:30)
[2018-03-24] MEDS ORDERED: DEXTROSE 5%-0.45% SALINE 1,000 ML IV SCH (14:30)
[2018-03-24] MEDS ORDERED: MIDAZOLAM HCL 2 MG/2 ML SINGLE DOSE VIAL ONE ×2 (14:30)
[2018-03-24] MEDS ORDERED: ceFAZolin SODIUM 1 GM VIAL IVPB ONE (14:30)
[2018-03-24] MEDS ORDERED: PROPOFOL 20 ML ONE (14:32)
[2018-03-24] MEDS ORDERED: ACETAMINOPHEN INJECTION 100 ML IVPB ONE (15:39)
[2018-03-24] MEDS ORDERED: ONDANSETRON 4 MG/2 ML VIAL ONE (15:57)
[2018-03-24 17:19] VITALS: BP 151/81; PULSE 66; TEMP 98.2
--- NOTE | 2018-04-03 20:21 | OP ---
DATE OF OPERATION: 03/24/2018 PREOPERATIVE DIAGNOSES: Recurrent urinary tract infection and left hydronephrosis. POSTOPERATIVE DIAGNOSES: Recurrent urinary tract infection and left hydronephrosis, left ureteropelvic junction obstruction. SURGEON: Gerardo Nichols MD PROCEDURE: Cystoscopy, bilateral retrograde pyelogram, left ureteral stent placement. FINDINGS: Left UPJ obstruction. DRAINS: A 24 x 6 double-J ureteral stent on the left. PREOPERATIVE INDICATIONS: The patient is a 57-year-old female who comes in with recurrent UTIs. She had a cystocele with some incomplete voiding. She was found to have hydronephrosis on the left side on imaging. OPERATION: The patient was brought to the OR, placed on the table in supine position, given general anesthesia and IV antibiotics, and placed in the modified lithotomy position. The groin was prepped and draped sterilely. Cystoscopy was performed. The bladder itself was dropped. There was a cystocele. There were no tumors or stones seen. Bilateral retrograde pyelograms were performed. The right side was normal. The left side revealed tightening in the upper ureter and hydronephrosis seen consistent with a UPJ obstruction. 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 A 6 x 24 double-J ureteral stent was placed with 1 loop in the kidney, 1 loop in the bladder. The patient was emptied. The patient was woken up. GERARDO NICHOLS M.D. [id number]
== END 2018-03-24 17:20 | disposition home or self-care (01) ==
LOC: EDBD → JASU-SURG 12:20 → MERGE 19:08
PROVIDERS: ATTEND Urology
PROC: BT1FZZZ Fluoroscopy of Left Kidney, Ureter and Bladder (ICD-10-PCS; 2018-03-24)
PROC: 0T9780Z Drainage of Left Ureter with Drainage Device, Via Natural or Artificial Opening Endoscopic (ICD-10-PCS; principal; 2018-03-24 14:00)
DX: N13.6 Pyonephrosis (principal)
CPT/HCPCS: 76000-TC-FY; 94760; J0131

== ENCOUNTER 2018-05-07 21:07 | Emergency (ER) | payer OTHER ==
[2018-05-07] MEDS ORDERED: KETOROLAC TROMETHAMINE 30 MG/1 ML VIAL IVPUSH ONE (21:30)
[2018-05-07 21:37] VITALS: BP 160/84; PULSE 85; TEMP 98.1; BMI 37.2
[2018-05-07] MEDS ORDERED: KETOROLAC TROMETHAMINE 30 MG/1 ML VIAL ONE (21:38)
--- NOTE | 2018-05-07 21:44 | PDOC ---
Attending Attestation - Resident Resident Name: ElíasemilyJosie - ED Attending Attestation I have performed the following: I have examined & evaluated the patient, The case was reviewed & discussed with the resident, I agree w/resident's findings & plan, Exceptions are as noted - HPI HPI: 05/07/18 21:41 57 yo female fell yesterday while walking and tripped over the curve and fell onto her left side. She has had ribcage pain since her fall. He pain is exacerbated with deep breaths and movement - Physicial Exam PE: 05/07/18 21:44 57 yo female p/w 1 day of left sided ribcage pain head ncat eyes rui eomi lungs cta b/l cvs [id number] abd nontender ext no arm or leg tenderness no cva tenderness skin ecchymosis on left anterior ribcage,+pinpoint tenderness neuro axox3,ambulatory,no gross focal neuro deficits psych appropriate 05/07/18 21:50 - Medical Decision Making 05/07/18 21:52 concern for ptx,rib fractures,xrays ordered 05/07/18 23:30 pt does have a nondisplaced rib fracture, will sent with nsaids pt has no fever,no cough,no hypoxia cxr there is no ptx appreciated 05/07/18 23:44 IMP: RIB FRACTURE, plan: d.c home spoke to pt about taking good deep breaths to prevent splinting and increased chances of pna
--- NOTE | 2018-05-07 21:51 | PDOC ---
History of Present Illness - General Stated Complaint: BACK PAIN Time Seen by Provider: 05/07/18 21:11 - History of Present Illness Initial Comments: Lorena Burger is a 57yo woman with a PMH of R breast CA in remission, depression, hypothyroidism, s/p gastric bypass, uterine prolapse, frequent UTI who presents with left-sided rib pain following a fall yeserday. She states that she was out walking with a friend and tripped. She denies any symptoms preceeding the fall including lightheadedness, vertigo, chest pain, or SOB. She landed on the curb, striking her left ribs on the edge of the curb. She was able to get up and walk home immediately following the fall. She denies any head trauma, LOC, or injury to her back, hips, or extremities. Ms Burger states that yesterday the pain was tolerable, but today she has been taking acetaminophen 2 tablets ever 6hrs without any significant relief. She has severe pain over the left lateral ribs whenever she tries to move around or take a deep breath. She denies pain in any other part of the chest wall and also denies any shortness of breath, though deep breathing has been limited by pain. Other than the fall yesterday, Ms Burger has been feeling well. She has been taking all of her prescribed medications, has no new changes to her health, and denies any other symptoms currently. Past History - Past Medical History Allergies/Adverse Reactions: Allergies Allergy/AdvReac Type Severity Reaction Status Date / Time No Known Allergies Allergy Verified 05/07/18 21:37 Home Medications: Ambulatory Orders Levothyroxine [Synthroid -] 112 mcg PO DAILY 10/26/11 Citalopram Hydrobromide [Celexa -] 30 mg PO DAILY 11/28/12 Zolpidem Tartrate [Ambien] 10 mg PO HS PRN 02/09/18 Cefuroxime Axetil [Ceftin -] 500 mg PO Q12H #20 tablet 03/24/18 Ibuprofen 600 mg PO Q6H PRN #24 tablet 05/07/18 Anemia: No Asthma: Yes Cancer: Yes (Right Breast s/p lumpectomy, chemo, radiation) Cardiac Disorders: No CVA: No COPD: No CHF: No Dementia: No Diabetes: No GI Disorders: No Disorders: No HTN: No Hypercholesterolemia: No Liver Disease: Yes Seizures: No Thyroid Disease: Yes - Surgical History Abdominal Surgery: Yes (Gastric Bypass 1998) Appendectomy: No Cardiac Surgery: No Cholecystectomy: Yes Lung Surgery: No Neurologic Surgery: No Orthopedic Surgery: No - Suicide/Smoking/Psychosocial Hx Smoking Status: Yes Smoking History: Current some day smoker Have you smoked in the past 12 months: Yes Number of Cigarettes Smoked Daily: 7 'Breaking Loose' booklet given: 03/23/18 Hx Alcohol Use: No Drug/Substance Use Hx: No Substance Use Type: None Hx Substance Use Treatment: No Review of Systems - Review of Systems Comments:: General: No fevers, no chills, no weight or appetite change, no malaise HEENT: No changes in vision, no changes in hearing, no congestion, no sore throat CV: No chest pain, no palpitations, no LE edema Pulm: No SOB, no cough, no wheezing. +pleuritic pain GI: No nausea or vomiting, no change in bowel habits, no melena : No frequency, no urgency, no dysuria Musc: No back pain, no joint swelling. +Fall, see HPI Skin: No rash, no lesions, no erythema Endo: No excessive thirst, no heat/cold intolerance Heme: No unusual bruising or bleeding, no swollen glands Neuro: No syncope, no numbness/tingling, no focal weakness Vasc: No claudication Psych: No recent change in mood, no SI or HI *Physical Exam - Physical Exam Comments: General: Uncomfortable but in no acute distress HEENT: PERRL, EOMI, MMM, voice normal. Atraumatic, no neck tenderness, normal neck ROM. Cards: RRR, no murmur appreciated Pulm: Comfortable on room air. Anterior exam only 2/2 pain - difficult hearing breath sounds at b/l bases. Chest: Ecchymosis over left approx 6-7th ribs, no palpable deformity, TTP at area of bruising. No tenderness surrounding. Back: No bony tenderness over spine, no step-off or deformity Abd: Soft, nontender, nondistended : No CVA tenderness Ext: Atraumatic. No LE edema. ROM intact. Strength 5/5 and equal bilaterally. WWP Skin: Normal color, no rashes or lesions other than L chest wall eccymosis noted above Neuro: A&Ox3, CN grossly intact, normal speech, motor/sensory grossly intact and symmetric Psych: Mood appropriate to situation ED Treatment Course - LABORATORY CBC & Chemistry Diagram: 05/07/18 21:47 05/07/18 21:47 - RADIOLOGY Radiology Studies Ordered: Category Date Time Status RIBS-LEFT SIDE [RAD] Stat Radiology 05/07/18 21:30 Ordered Medical Decision Making - Medical Decision Making 05/07/18 21:31 Lorena Burger is a 57yo woman with a PMH of R breast CA in remission, depression, hypothyroidism, s/p gastric bypass, uterine prolapse, frequent UTI who presents with left-sided rib pain, exacerbated by movement and deep breaths , following a mechanical fall yesterday. She has overlying ecchymosis and TTP on exam - Likely rib contusion v fracture - Rib xrays ordered for evaluation - Toradol for pain - CBC, CMP 05/07/18 22:25 - Labs reviewed. No concerning abnormalities - Pt at xray - Will re-evaluate when xrays completed 05/07/18 22:56 - Xrays reviewed. No obvious fracture. Will review w/ Dr Carrillo as well - Pt feels significantly better - Lidocaine patch ordered for additional pain control - Most likely d/c home with PMD follow up, but will reassess 05/07/18 23:27 - Subtle non-displaced fracture of left lateral 7th rib noted on re-evaluation of xrays - Informed Ms Burger. Advised regarding home care and follow up, including importance of deep breaths several times per hour. She states understanding and feels improved enough to go home. Discussed with Dr Carrillo. Josie Horn PGY1 *DC/Admit/Observation/Transfer Diagnosis at time of Disposition: Left rib fracture Qualifiers: Encounter type: initial encounter Rib fracture type: single rib Fracture type: closed Qualified Code(s): S22.32XA - Fracture of one rib, left side, initial encounter for closed fracture - Discharge Dispostion Disposition: HOME Condition at time of disposition: Stable Decision to Admit order: No - Referrals Referrals: ON STAFF,NOT [Non Staff, Medical] - - Patient Instructions Printed Discharge Instructions: DI for Rib Fracture Additional Instructions: Discharge Instructions: You were seen in the emergency department for left rib pain following a fall. You were found to have a small non-displaced fracture of the left 7th rib. There is nothing that needs to be done for this other than control your pain at home. Home Care and Follow Up: - You have been prescribed ibuprofen 600mg for pain at home. This can be taken every 6-8 hours as needed for pain. It is recommended that you take this medication with food or milk to prevent an upset stomach. - 650-1000mg acetaminophen (Tylenol) orcan be used every 6-8 hours in between the prescribed ibuprofen if needed for additional pain control. If needed for continued pain, these medications may be alternated every 3-4 hours. For example , you received ibuprofen at 9pm, so you may take acetaminophen at midnight, ibuprofen at 3am, acetaminophen at 6am. - You had a lidocaine patch placed in the ED to help with your pain. This may remain in place for 12 hours and should then be removed for 12 hours. You may buy additional patches over the counter at any pharmacy. They are Lidocaine 4% patches. - Try using an ice pack for 20 minutes every hour or a heating pad for additional pain control. These should NOT be used over the lidocaine patch, but you may place them over the areas of pain while the patch is off. - Do not stop moving around. As much as you can tolerate, continue to do light exercise and stretching exercises. Increase your activity level as much as you can tolerate daily. - The biggest risk with rib pain is developing a pneumonia over the next few weeks due to shallow breathing. Make sure you take a deep breath at least 2-3 times every hour to fully expand your lungs to help prevent pneumonia. - If your pain does not improve over the next week, see your regular doctor for follow up. - Seek immediate medical care if you have significant worsening of your symptoms , difficulty breathing, develop fever to 101F or cough, you have additional chest pain, or you have any other medical emergency. - Post Discharge Activity
[2018-05-07 21:54] LABS: BASO % 0.9 % (0-2.0); HEMATOCRIT 36.5 % (32.4-45.2); HEMOGLOBIN 12.7 GM/dL (10.7-15.3); LYMPH % 21.4 % (8-40); MCH 29.1 pg (25.7-33.7); MCHC 34.8 g/dl (32.0-36.0); MEAN CELL VOLUME 83.6 fl (80-96); MEAN PLT VOLUME 7.5 fl (7.5-11.1); MONO % 12.1 % (3.8-10.2); NEUT % 64.6 % (42.8-82.8); PLATELET COUNT 276 K/MM3 (134-434); RBC 4.37 M/mm3 (3.60-5.2); RDW 14.5 % (11.6-15.6); WHITE BLOOD COUNT 5.1 K/mm3 (4.0-10.0)
[2018-05-07 22:16] LABS: ALBUMIN 3.4 g/dl (3.4-5.0); ALK PHOS 119 U/L (45-117); ANION GAP 7 MMOL/L (8-16); BILIRUBIN,TOTAL 1.2 mg/dL (0.2-1); BLOOD UREA NITROGEN 12 mg/dL (7-18); CALCIUM 8.7 mg/dL (8.5-10.1); CHLORIDE 102 mmol/L (98-107); CO2 29 mmol/L (21-32); CREATININE 0.6 mg/dL (0.55-1.3); GLUCOSE,RANDOM 118 mg/dL (74-106); POTASSIUM 3.7 mmol/L (3.5-5.1); SGOT/AST 22 U/L (15-37); SGPT/ALT 15 U/L (13-61); SODIUM 138 mmol/L (136-145); TOT PROT 6.7 g/dl (6.4-8.2)
[2018-05-07] MEDS ORDERED: LIDOCAINE 5% TOPICAL PATCH TP ONE (22:56)
[2018-05-07] MEDS ORDERED: LIDOCAINE 5% TOPICAL PATCH ONE (23:29)
== END 2018-05-08 00:15 | disposition home or self-care (01) ==
LOC: JER 21:07
PROC: 3E0333Z Introduction of Anti-inflammatory into Peripheral Vein, Percutaneous Approach (ICD-10-PCS; principal; 2018-05-07)
DX: S22.32XA Fracture of one rib, left side, initial encounter for closed fracture (principal); W10.1XXA Fall (on)(from) sidewalk curb, initial encounter; Y93.01 Activity, walking, marching and hiking; Y92.480 Sidewalk as the place of occurrence of the external cause; Y99.8 Other external cause status; E03.9 Hypothyroidism, unspecified; Z85.3 Personal history of malignant neoplasm of breast
CPT/HCPCS: 36415; 71101-TC-LT-FY; 80053; 85025; 99283-25

== ENCOUNTER 2019-03-30 07:39 | Day surgery (SDC) | payer OTHER ==
[2019-03-26 15:24] VITALS: BMI 39.8
[2019-03-30] MEDS ORDERED: DEXAMETHASONE SOD PHOSPHATE 4 MG/1 ML VIAL ONE (07:58)
[2019-03-30] MEDS ORDERED: MIDAZOLAM HCL 2 MG/2 ML SINGLE DOSE VIAL ONE (07:58)
[2019-03-30] MEDS ORDERED: ceFAZolin SODIUM 1 GM VIAL ONE ×2 (07:58→09:19)
[2019-03-30] MEDS ORDERED: ONDANSETRON 4 MG/2 ML VIAL ONE (07:58)
[2019-03-30] MEDS ORDERED: PROPOFOL 20 ML ONE ×2 (07:58→11:14)
[2019-03-30] MEDS ORDERED: BUPIVACAINE HCL/PF 2.5 MG/ML - 30 ML VIAL IJ ONE (08:41)
[2019-03-30] MEDS ORDERED: ALBUTEROL SO4 HFA INHALER IH ONE (08:56)
[2019-03-30] MEDS ORDERED: KETOROLAC TROMETHAMINE 30 MG/1 ML VIAL ONE (09:25)
[2019-03-30] MEDS ORDERED: BUPIVACAINE HCL/PF 0.25% (2.5MG/ML) 10 ML VIAL IJ ONE (09:35)
[2019-03-30 10:52] VITALS: TEMP 97.8
[2019-03-30] MEDS ORDERED: oxyCODONE HCL 5 MG TABLET PO PRN ×2 (11:11)
[2019-03-30] MEDS ORDERED: ONDANSETRON 4 MG/2 ML VIAL IVPUSH PRN (11:11)
[2019-03-30] MEDS ORDERED: LACTATED RINGERS SOLUTION 1,000 ML IV SCH (11:15)
[2019-03-30] MEDS ORDERED: ROCURONIUM BROMIDE 50 MG/5 ML VIAL ONE (11:17)
[2019-03-30 11:28] VITALS: BP 116/58; PULSE 58
[2019-03-30] MEDS ORDERED: NEOSTIGMINE METHYLSULFATE 0.5 MG/ML - 10 ML MDV ONE (11:47)
--- NOTE | 2019-03-30 12:59 | OP ---
DATE OF OPERATION: 03/30/2019 SURGEON: Paul Larson MD YARN WORKER: GOMEZ Enriquez PREOPERATIVE DIAGNOSES: 1. Right knee medial and lateral meniscal tear. 2. Right knee cartilage injury. 3. Right knee synovitis. POSTOPERATIVE DIAGNOSES: 1. Right knee medial and lateral meniscal tear. 2. Right knee cartilage injury. 3. Right knee synovitis. PROCEDURES: 1. Right knee arthroscopy with partial meniscectomy, medial and lateral meniscus; CPT code 96687 2. Right knee arthroscopy with chondroplasty and abrasion-plasty; CPT code 42105 3. Right knee arthroscopy with synovectomy; CPT code 95454 FINDINGS: 1. Medial meniscus body and posterior horn tear. 2. Lateral meniscus anterior one-third tear. 3. Synovitis patellofemoral medial, lateral and notch area. 4. Diffuse grade 4 changes 85% medial femoral condyle and tibial plateau. 5. ACL and PCL intact. 6. Minor grade 1-2 changes central portion of lateral femoral condyle and tibial plateau. 7. Diffuse grade 4 changes with large cartilage flap anterior patellofemoral trochlea and . 8. Evidence of previous arthroscopy. PROCEDURE: Informed consent was obtained. The patient came to the operating room, where the lower extremity was prepped and draped in a sterile fashion. A tourniquet was placed on the upper thigh, but not inflated. Using standard arthroscopic technique, a lateral incision and portal was made to allow for introduction of the camera into the suprapatellar bursa. This was then taken to the medial joint line, where under direct visualization, a medial incision and portal was made. Excessive synovium noted in the medial, lateral and patellofemoral and notch area was removed by an up-biter, shaver and Bovie cautery. This was found to bring in inflammatory tissue into the joint surface, a source of pain and dysfunction. Probing of the medial and lateral meniscus found tears, as described in the findings. These were removed with the up-biter and shaver and taken back to a stable rim. Grade 2 to 3 degenerative changes were treated with a chondroplasty, removing all flaking surfaces with low-setting Bovie along the periphery to prevent further flaking. Grade 4 changes, as noted, were treated with an abrasoplasty, creating a bleeding surface at the bone/cartilage interface. Aggressive debridement with shaver/miguel created bleeding surface. Microfracture also done when indicated in findings. All areas of the knee were once again re-examined. The knee was then drained and a single suture was placed in all portals. A sterile dressing was placed and the patient was transferred to the recovery room without complication. The PA listed above was present and assisted at surgery. Their presence was absolutely medically necessary for the completion of the procedure. They helped hold the arthroscopy, pass instruments (and implants when indicated) and the procedure could not have been completed without their assistance. PAUL LARSON M.D. [id number]
--- NOTE | 2019-04-02 16:09 | PATH ---
Surgical Pathology Report Patient Name: SHAILA GAVIN [facility]. Rec. #: [id number] /Age/Gender: 1960 (Age: 58) / F Account: [id number] Location: [facility] Taken: 03/30/2019 Received: 03/30/2019 Reported: 04/02/2019 Physicians: Paul Tinoco M.D. Specimen(s) Received SHAVINGS RIGHT KNEE Clinical History Right knee derangement Final Diagnosis KNEE, RIGHT, ARTHROSCOPIC SHAVINGS: FIBROCARTILAGINOUS TISSUE, FIBROSYNOVIAL TISSUE AND SCANT BONE. Electronically Signed Serena De Dios M.D. Gross Description Received in formalin, labeled "right knee shavings," is a 4.8 x 4.5 x 0.3 cm. aggregate of casiano-yellow soft tissue fragments. A territory sales representative portion is submitted in one cassette. /03/30/201903/30/2019
== END 2019-03-30 11:30 | disposition home or self-care (01) ==
LOC: FASU 07:39
PROVIDERS: ATTEND Orthopaedic Surgery
PROC: 0SBC4ZZ Excision of Right Knee Joint, Percutaneous Endoscopic Approach (ICD-10-PCS; 2019-03-30)
PROC: 0SBC4ZZ Excision of Right Knee Joint, Percutaneous Endoscopic Approach (ICD-10-PCS; 2019-03-30)
PROC: 0SBC4ZZ Excision of Right Knee Joint, Percutaneous Endoscopic Approach (ICD-10-PCS; principal; 2019-03-30 09:23)
DX: S83.241A Other tear of medial meniscus, current injury, right knee, initial encounter (principal); S83.281A Other tear of lateral meniscus, current injury, right knee, initial encounter; S83.8X1A Sprain of other specified parts of right knee, initial encounter; M65.861 Other synovitis and tenosynovitis, right lower leg; X58.XXXA Exposure to other specified factors, initial encounter; Y93.9 Activity, unspecified; Y92.9 Unspecified place or not applicable
CPT/HCPCS: 88304-TC; 94760